=== PATIENT | female | born 1970 ===

== ENCOUNTER 2025-04-21 16:33 | Outpatient (CLI) | payer BC, SELFPAY ==
--- NOTE | 2025-04-21 | DI.RAD_ITS ---
Exam(s) XR FOOT RT COMPLETE EXAM: XR FOOT RT COMPLETE CLINICAL HISTORY: Rt toe pain, M79.674. TECHNIQUE: 2D digital imaging was performed. Three views. COMPARISON: No exams were available for comparison FINDINGS: BONES: No acute fracture is present. No bony destructive lesion is seen. There is some flattening of the medial margin of the 1st metatarsal head which could be secondary to bunionectomy. Degenerative subchondral cysts are noted at the medial 1st metatarsal head. JOINTS: No dislocation present. Mild degenerative changes are present at the 1st and 2nd MTP joints, with mild periarticular spurring. SOFT TISSUE: Normal. IMPRESSION: Mild degenerative changes of 1st MTP joint. DATA REPOSITORY: RADIATION DOSE DELIVERED:
== END 2025-04-21 16:53 ==
PROVIDERS: Visit Provider Physician Assistant Medical
DX: M19.071 Primary osteoarthritis, right ankle and foot (principal)
CPT/HCPCS: 73630

== ENCOUNTER 2025-07-04 17:21 | Outpatient (REF) | payer BC, SELFPAY ==
[2025-07-04 21:29] LABS: ALT 18 U/L (14-59); AST 14 U/L (15-37); Albumin 3.8 g/dL (3.4-5.0); Alkaline Phosphatase 68 U/L (46-116); Anion Gap 10.4 mmol/L (3-11); BUN 16 mg/dL (7-18); Bilirubin, Total 0.2 mg/dL (0.2-1.0); CO2 26.6 mmol/L (21.0-32.0); Calcium 8.9 mg/dL (8.5-10.1); Calculated LDL 100 mg/dL (<100); Chloride 105 mmol/L (98-107); Cholesterol 207 mg/dL (<200); Estimated GFR 102.07 (mL/min/1.73m2); Glucose 94 mg/dL (74-106); HDL Cholesterol 56 mg/dL (>or=50); Potassium 4.2 mmol/L (3.5-5.1); Sodium 142 mmol/L (136-145); TSH 1.32 uIU/mL (0.36-3.74); Total Protein 7.0 g/dL (6.4-8.2); Triglyceride 255 mg/dL (<150); Vitamin D 25 Total 83 ng/mL (30-100)
[2025-07-05 18:48] LABS: HIV-1/2 Ag & Ab Screen Negative (Negative); Hepatitis C Ab w Rflx HCV PCR Negative (Negative)
== END 2025-07-04 17:22 | disposition home or self-care (01) ==
LOC: NCHCN 17:21
PROVIDERS: Visit Provider Nurse Practitioner Family
DX: Z00.00 Encounter for general adult medical examination without abnormal findings (principal); E78.00 Pure hypercholesterolemia, unspecified; E03.9 Hypothyroidism, unspecified
CPT/HCPCS: 80053; 80061; 82306; 86803; 87389; 84443

== ENCOUNTER → 2025-08-22 13:45 | Outpatient (CLI) | payer BC, SELFPAY ==
--- NOTE | 2025-08-22 13:53 | DI.RAD_ITS ---
Exam(s) XR THUMB RT EXAM: XR THUMB RT CLINICAL HISTORY: PAIN RT THUMB M79.644. TECHNIQUE: 2D digital imaging was performed of the right finger. Three views were obtained. PA/AP, oblique, and lateral views were obtained. COMPARISON: No exams were available for comparison FINDINGS: BONES: No acute fracture is present. No bony destructive lesion is seen. JOINTS: No dislocation present. There is asymmetric joint space narrowing and osteophytes at the interphalangeal joints of the hand, including the interphalangeal joint of the thumb. SOFT TISSUE: There is a tiny well-circumscribed osseous density at the radial aspect of the interphalangeal joint which appears old. 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 DATA REPOSITORY: RADIATION DOSE DELIVERED:
== END ==
LOC: DI 13:45
PROVIDERS: Visit Provider Nurse Practitioner Family
DX: M79.644 Pain in right finger(s) (principal); M19.041 Primary osteoarthritis, right hand
CPT/HCPCS: 73140